=== PATIENT | female | born 1985 | race Two or more races ===

== ENCOUNTER 2018-09-14 17:55 | Emergency (ER) | payer OTHER ==
[~2018-09-14] VITALS: Ht 157.5 cm; Wt 74.4 kg
--- NOTE | 2018-09-14 18:16 | NUR ---
PATIENT WAS SEEN BY MD FOR C/O SCRATCH FROM [facility] ([facility]). DC, RX AND FOLLOW UP INSTRUCTIONS GIVEN AND EXPLAIND TO PATIENT WHO STATES SHE UNDERSTANDS ALL INSTRUCTIONS.
== END 2018-09-14 18:18 | disposition home or self-care (01) ==
LOC: ER 17:59
DX: S61.234A Puncture wound without foreign body of right ring finger without damage to nail, initial encounter (principal); Z88.8 Allergy status to other drugs, medicaments and biological substances; W55.03XA Scratched by cat, initial encounter; Y93.89 Activity, other specified; Y92.89 Other specified places as the place of occurrence of the external cause; Y99.8 Other external cause status
CPT/HCPCS: A4663